=== PATIENT | female | born 1985 ===

== ENCOUNTER 2021-07-03 04:32 | Emergency (ER) | payer SELFPAY ==
[2021-07-03] MEDS ORDERED: AMOX-422 PO (04:38)
[2021-07-03] MEDS ORDERED: NAPR-56 PO (04:38)
[2021-07-03] MEDS ORDERED: naproxen 500mg tablet PO ONE (04:40)
[2021-07-03] MEDS ORDERED: HYDROcodone/acetaminophen 10/325mg tab PO ONE (04:40)
[2021-07-03] MEDS ORDERED: amox tr/potassium clavulanate 875/125mg TAB PO ONE (04:40)
== END 2021-07-03 04:48 | disposition left against medical advice (07) ==
LOC: ER 04:33
DX: K08.89 Other specified disorders of teeth and supporting structures (principal); F41.9 Anxiety disorder, unspecified; F15.90 Other stimulant use, unspecified, uncomplicated; F17.200 Nicotine dependence, unspecified, uncomplicated; Z79.2 Long term (current) use of antibiotics; Z79.899 Other long term (current) drug therapy
CPT/HCPCS: 99283